=== PATIENT | female | born 1975 | race Caucasian/White ===

== ENCOUNTER 2017-11-05 05:09 | Emergency (ER) | payer SELFPAY ==
[2017-11-05] MEDS ORDERED: Lidocaine Viscous Sol 2% 15 ml UD Cup ONE (05:57)
[2017-11-05] MEDS ORDERED: Dexamethasone 4 MG TAB ONE (05:57)
--- NOTE | 2017-11-05 08:11 | RAD ---
2 VIEWS SOFT TISSUE NECK: Date: 11/05/17 INDICATION: Pharyngitis. COMPARISON: None. FINDINGS: There is straightening of the normal cervical lordosis. The prevertebral soft tissues are normal. Vis ualized epiglottic folds appear normal. The subglottic airway appears within normal limits. Lung apic es are clear. Mild disc degenerative disease is seen at C3-4. IMPRESSION: No acute abnormality. POS: [facility]
== END 2017-11-05 06:55 | disposition home or self-care (01) ==
LOC: ERS 05:09
DX: J02.9 Acute pharyngitis, unspecified (principal)
CPT/HCPCS: 70360; 87081; 87430; J8540

== ENCOUNTER 2017-11-05 15:23 | Emergency (ER) | payer SELFPAY | END 2017-11-05 16:17 | disposition home or self-care (01) | LOC: SCSER 15:23 | DX: J02.9 Acute pharyngitis, unspecified (principal) | CPT/HCPCS: 99283 ==

== ENCOUNTER 2018-04-03 21:15 | Day surgery (SDC) | payer SELFPAY ==
[~2018-04-03 21:15] MED LIST: ISOVUE-370 76%-LOCM 1 ML ONE
[2018-04-03 21:50] LABS: #Basophils 0.1 thou/uL (0.0-0.2); #Eosinphils 0.1 thou/uL (0.0-0.7); #Lymphocytes 2.5 thou/uL (1.20-3.40); #Monocytes 0.8 thou/uL (0.11-0.59); #Neutrophils 10.8 thou/uL (1.40-6.50); %Basophils 0.7 % (0.0-1.0); %Eosinophils 0.7 % (0.0-10.0); %Lymphocytes 17.4 % (21.0-51.0); %Monocytes 5.5 % (0.0-10.0); %Neutrophils 75.6 % (42.0-75.0); Hemoglobin 13.2 g/dL (12.0-16.0); Mean Corpuscular HGB CONC 35.7 g/dL (32.0-36.0); Mean Corpuscular Hemoglobin 29.8 pg (27.0-31.0); Mean Corpuscular Volume 83.5 fL (78.0-98.0); Mean Platelet Volume 7.7 fL (7.4-10.4); Platelet Count 343 thou/uL (130-400); RBC Distribution Width 12.5 % (11.5-14.5); Red Blood Cell (RBC) Count 4.44 mill/uL (4.20-5.40); White Blood Cell (WBC) Count 14.3 thou/uL (4.8-10.8)
[2018-04-03] MEDS ORDERED: Ondansetron HCl/PF 4 MG/2 ML Vial ONE (21:52)
[2018-04-03] MEDS ORDERED: Morphine 4 MG/ML VIAL ONE ×2 (21:52→22:48)
[2018-04-03 21:54] LABS: Bilirubin Negative (Negative); Blood, Urine Negative (Negative); Clarity CLEAR (Clear); Glucose, Urine (Dipstick) Negative (Negative); Leukocyte Negative (Negative); Nitrite Negative (Negative); Protein, Urine (Dipstick) Negative (Neg-Trace); Urobilinogen 0.2 mg/dL (0.2-1.0); pH, Urine 7.5 (5.0-9.0)
[2018-04-03 21:56] LABS: Specific Gravity, Urine 1.003 (1.002-1.036)
[2018-04-03 21:59] LABS: BHCG - Serum Negative (NEGATIVE); Pregs Control Background? CLEAR/WHITE (CLR/WHITE); Pregs Control Bar Appear? YES (CONTROL BAR)
[2018-04-03 22:11] LABS: ALT (SGPT) 13 U/L (8-55); AST (SGOT) 15 U/L (5-34); Albumin 4.4 g/dL (3.5-5.0); Alkaline Phosphatase 104 U/L (40-150); Anion Gap 15 mmol/L (10-20); BUN (Urea Nitrogen) 11 mg/dL (7.0-18.7); Bilirubin, Total 0.4 mg/dL (0.2-1.2); Calc. Creatinine Clearance 0 mL/min (70-130); Carbon Dioxide 21 mmol/L (22-29); Chloride 100 mmol/L (98-107); Estimated GFR-MDRD 70; Globulin 3.6 g/dL (2.4-3.5); Glucose 98 mg/dL (70-105); Lipase 18 U/L (8-78); Potassium 3.2 mmol/L (3.5-5.1); Sodium 133 mmol/L (136-145)
--- NOTE | 2018-04-03 22:43 | CT ---
CT ABDOMEN AND PELVIS WITH IV CONTRAST: 04/03/18 HISTORY: Right lower quadrant abdominal pain. COMPARISON: None available. FINDINGS: There is a small hiatal hernia. Lung bases are clear. The upper portion of the liver is excluded from view. The remainder of the liver has a normal CT appe arance. The spleen, pancreas, bilateral adrenal glands, kidneys, and urinary bladder demonstrate a normal CT appearance. The appendix is visualized and filled with gas and is normal in caliber. There is a rounded area of increased density with centrally located heterogeneity and decreased atten uation seen in the region of the cervix. This does not appear to represent the endocervical canal. Th e lesion within the cervix is a possibility. There is decreased attenuation in the endocervical canal with a 1.5 cm increased density focus within the area of low density. Could represent either a small fibroid or polyp. This is difficult to evaluate on this exam. Small amount of free fluid is seen in the right adnexal region. There are two closely adjacent subcen timeter hypodense cystic appearing structures in the right adnexa with irregular margins likely relat ed to involuting right ovarian cysts. There is colonic diverticulosis. No dilated loops of small bowel are seen. IMPRESSION: 1. Abnormal heterogeneous rounded mass-like structure within the region of the cervix with sugge stion of increased density mass-like structure in the endometrial canal. Further evaluation with pelv ic ultrasound is recommended. 2. Small amount of free fluid in the right adnexa. 3. No CT evidence of appendicitis. 4. Colonic diverticulosis. 5. Mild thickening of the solis of proximal loops of jejunum which is overall nonspecific. Enter itis is a possibility. 6. Small hiatal hernia. POS: [facility]
--- NOTE | 2018-04-04 00:07 | ULT ---
PELVIC ULTRASOUND: 04/03/18 HISTORY: Pelvic pain. COMPARISON: CT abdomen and pelvis on 04/03/18 obtained at 2152 hours. FINDINGS: Multiple endovaginal sonographic images of the pelvis are obtained. The uterus measures 9.6 cm x 5.9 cm x 6.2 cm. There are two hypoechoic structures seen within the modoc maddison, one seen centrally within the body of the uterus measuring 1.6 cm and second hypoechoic area luci suring 1.8 cm in the posterior body of the uterus likely related to uterine fibroids and probably acc ounts for abnormality seen within the central uterus on CT examination. There are also several Naboth hailee cysts present within the cervix which probably accounts for the abnormality in the cervix on CT e xam. The endometrium is not well delineated and is thin in appearance measuring less than 0.3 cm. The left ovary measures 2.6 x 2 x 1.3 cm. A few follicles are seen in the left ovary. There is an ech ogenic focus with central hypoechoic area seen within the left ovary which measures approximately 1 c m. The right ovary measures 3 cm x 2.9 cm x 3.1 cm. A few anechoic and hypoechoic structures are seen wi thin the right ovary measuring 2 cm or less which likely represent small follicles. Doppler evaluation of each ovary with spectral analysis and color flow evaluation does demonstrate ar terial and venous flow in each ovary. There is a slightly increased echogenic right adnexal mass which measures 5.4 cm x 2.1 cm x 1.6 cm. C olor flow evaluation demonstrates flow within this mass. This mass is in close proximity to the right ovary although there is suggestion of separation of this mass and the right ovary. There is small amount of free fluid in the cul-de-sac which does demonstrate increased echogenic mate rial suggesting complicated fluid and hemorrhage is a possibility. IMPRESSION: 1. Right adnexal mass which is in close proximity and probably abuts the right ovary. This may p otentially be ovarian in origin. Neoplastic process is a possibility. 2. Small anechoic and hypoechoic structures in each ovary likely related to follicles. 3. Uterine fibroids as well as multiple Nabothian cysts, and these findings likely correspond to the CT scan abnormalities within the uterus. 4. Small amount of complicated fluid within the cul-de-sac which could potentially represent sma ll amount of hemorrhage. 5. No fluid or fluid collection is seen in the endometrial canal. 6. Ectopic cannot be excluded based on this examination, but quantitative beta HCG lev el is reported as negative. 7. OB-RACKMAN consultation is suggested for further evaluation. POS: [facility]
[2018-04-04] MEDS ORDERED: Ondansetron HCl/PF 4 MG/2 ML Vial ONE ×2 (01:17→15:29)
[2018-04-04] MEDS ORDERED: Morphine 4 MG/ML VIAL ONE (01:17)
[2018-04-04] MEDS ORDERED: Bupivacaine/Epinephrine 0.25% 30 ML VIAL ONE (01:32)
[2018-04-04] MEDS ORDERED: Promethazine HCl 25 MG/ML VIAL ONE (01:34)
[2018-04-04] MEDS ORDERED: Fentanyl 100 MCG/2 ML VIAL ONE (01:34)
[2018-04-04] MEDS ORDERED: HYDROmorphone 2 MG/ML VIAL ONE (01:34)
[2018-04-04 01:44] LABS: Band 5 % (5-11); Hemoglobin 12.2 g/dL (12.0-16.0); Lymphocytes 30 % (21-51); MDiff Complete? YES; Mean Corpuscular HGB CONC 35.1 g/dL (32.0-36.0); Mean Corpuscular Hemoglobin 29.3 pg (27.0-31.0); Mean Corpuscular Volume 83.5 fL (78.0-98.0); Mean Platelet Volume 7.8 fL (7.4-10.4); Neutrophil 65 % (42-75); PLT Morphology Comment Appears Adequate; Platelet Count 309 thou/uL (130-400); RBC Distribution Width 12.5 % (11.5-14.5); Red Blood Cell (RBC) Count 4.17 mill/uL (4.20-5.40); White Blood Cell (WBC) Count 11.7 thou/uL (4.8-10.8)
[2018-04-04] MEDS ORDERED: Promethazine HCl 25 MG/ML VIAL SLOW IVP PRN (05:56)
[2018-04-04] MEDS ORDERED: Promethazine HCl 25 MG/ML VIAL IM PRN (05:56)
[2018-04-04] MEDS ORDERED: Ondansetron HCl/PF 4 MG/2 ML Vial IVP PRN (05:56)
[2018-04-04] MEDS ORDERED: HYDROmorphone 2 MG/ML VIAL SLOW IVP PRN (05:56)
--- NOTE | 2018-04-04 12:18 | OP ---
DATE OF PROCEDURE: 04/04/2018. PREOPERATIVE DIAGNOSES: 1. Acute onset of right-sided abdominal pain. 2. Adnexal mass. 3. Free fluid in the pelvis. POSTOPERATIVE DIAGNOSIS: Torsed right tube with hemoperitoneum. PROCEDURE PERFORMED: Diagnostic laparoscopy with partial right salpingectomy and evacuation of blood . ANESTHESIA: General. SURGEON: Dr. Stan Gutierrez. COUNTS: Correct. COMPLICATIONS: None. CONDITION: Stable to recovery room. SPECIMENS: Fimbrial portion of the right tube, i.e., the distal portion of the tube, status post a p rior tubal ligation. INDICATIONS FOR PROCEDURE: Ms. Ines Bella is a 42-year-old female who presented to the emergency room with acute onset abdominal pain that began approximately 24 hours before my evaluation. The pat ient was noted to have acute pain with free fluid in the pelvis and a right adnexal mass. Given the acuity of the situation and the presence of free fluid, decision was made to move forward with surger y for evaluation. Of note, the patient's hemoglobin and vital signs remained stable. DESCRIPTION OF PROCEDURE: After providing informed consent, the patient was taken to the operating r oom where she was placed under general anesthesia and placed in dorsal lithotomy position in [facility]. She was prepared and draped in the normal sterile fashion. Attention was placed vaginally w ith an operative speculum where the cervix was identified, grasped with a single tooth tenaculum. Ut erus sounded to approximately 11 cm and a uterine manipulator was then placed. Attention was then pl aced abdominally where a 5 mm skin incision was placed through the previous scar from tubal ligation surgery. Additional 5 mm incision was placed in the left quadrant and approximately 10-11 cm incisio n was placed to midline suprapubically. The Veress needle was then introduced into the abdominal cav ity and abdomen was insufflated to 15 mmHg. Entry pressure was 7 mmHg at a second attempt. The 5 mm port with trocar was then inserted through the umbilicus into the abdominal cavity confirmed by lapa roscope. The 11 mm port with trocar was then introduced suprapubically under direct visualization. Of note, the pelvis immediately was seeing blood in the cul-de-sac. The uterus was elevated and the right adnexa were then elevated from the ovarian fossa. Immediately visible was the right distal por tion of her tubal ligation. This fimbrial distal portion of the tube was extremely swollen, congeste d and dark maroon in color and clearly torsed. The third port and trocar was then introduced in the left incision and with the aid of laparoscopic graspers and the LigaSure device, the tube was then tr ansected from the mesosalpinx and removed through an Endo Catch bag in the suprapubic port. Given th e extent of the swelling, this was done with some difficulty. Once this was done, inspection was the n made of the surgical site and was found to be hemostatic. Both ovaries appeared to be normal. The posterior cul-de-sac was then irrigated and an attempt to remove as much blood as possible. Total a mount of about 100 mL of blood was noted in the cul-de-sac. With this completed, the ports were reina rosalba from the abdomen after deflation. The skin was closed with 4-0 Monocryl and the patient was take n to recovery room in stable condition. The single tooth tenaculum and uterine manipulator were also removed with tenaculum sites hemostatic.
[2018-04-04] MEDS ORDERED: Ketorolac Tromethamine 30 MG/ML VIAL ONE (15:29)
[2018-04-04] MEDS ORDERED: Dexamethasone 20 MG/5 ML VIAL ONE (15:29)
[2018-04-04] MEDS ORDERED: Glycopyrrolate 0.2 MG/ML 5 ML SYRINGE ONE (15:29)
[2018-04-04] MEDS ORDERED: ePHEDrine/0.9% NaCl/PF SYRINGE 50 mg/10 ml ONE (15:29)
[2018-04-04] MEDS ORDERED: Succinylcholine Chloride 20 MG/ML 10 ml SYRINGE FS ONE (15:29)
[2018-04-04] MEDS ORDERED: PROPOFOL 200 MG/20 ML VIAL ONE (15:29)
[2018-04-04] MEDS ORDERED: Lidocaine 1% PF 5 ML VIAL ONE (15:29)
[2018-04-05 00:02] LABS: Chlamydia by PCR Not Detected (NotDetected); GC by PCR Not Detected (NotDetected)
== END 2018-04-04 07:20 | disposition home or self-care (01) ==
LOC: ERS 21:15 → SDC/OP 04-04 04:10
PROVIDERS: ATTEND Obstetrics & Gynecology
PROC: 0UB54ZZ Excision of Right Fallopian Tube, Percutaneous Endoscopic Approach (ICD-10-PCS; principal; 2018-04-04)
DX: N83.6 Hematosalpinx (principal); N83.521 Torsion of right fallopian tube; K66.1 Hemoperitoneum; Z98.51 Tubal ligation status
CPT/HCPCS: 36415; 74177; 76856; 80053; 81003; 83690; 84702; 84703; 85025; 86850; 86900; 86901; 87480; 87491; 87510; 87591; 87660; 88305; 96361; 96374; 96375; 96376; J1100; J1170; J1885; J2001; J2270; J2405; J2550; J2704; J3010

== ENCOUNTER 2019-05-13 08:21 | Inpatient (IN) | payer SELFPAY ==
[2019-05-13 09:12] LABS: #Basophils 0.1 thou/uL (0.0-0.2); #Eosinphils 0.1 thou/uL (0.0-0.7); #Lymphocytes 1.5 thou/uL (1.20-3.40); #Neutrophils 13.6 thou/uL (1.40-6.50); %Basophils 0.4 % (0.0-1.0); %Eosinophils 0.6 % (0.0-10.0); %Lymphocytes 9.5 % (21.0-51.0); %Monocytes 5.9 % (0.0-10.0); %Neutrophils 83.7 % (42.0-75.0); Hemoglobin 12.2 g/dL (12.0-16.0); Mean Corpuscular HGB CONC 33.1 g/dL (32.0-36.0); Mean Corpuscular Hemoglobin 26.2 pg (27.0-31.0); Mean Corpuscular Volume 79.3 fL (78.0-98.0); Mean Platelet Volume 8.4 fL (7.4-10.4); Platelet Count 372 thou/uL (130-400); RBC Distribution Width 13.7 % (11.5-14.5); Red Blood Cell (RBC) Count 4.64 mill/uL (4.20-5.40); White Blood Cell (WBC) Count 16.2 thou/uL (4.8-10.8)
[2019-05-13 09:25] LABS: Bacteria/HPF None Seen HPF (None Seen); Bilirubin Negative (Negative); Blood, Urine 2+ (Negative); Clarity Clear (Clear); Glucose, Urine (Dipstick) Normal (Negative); Leukocyte Negative Leu/uL (Negative); Mucous/LPF 1+ LPF (<2+); Nitrite Negative (Negative); Protein, Urine (Dipstick) 30 mg/dL (Neg-Trace); Squamous Epithelial 0-3 HPF (0-3); Urobilinogen Normal mg/dL (Less than 2); WBC/HPF 0-3 HPF (0-3)
[2019-05-13] MEDS ORDERED: Morphine 4 MG/ML VIAL ONE (09:30)
[2019-05-13] MEDS ORDERED: Ondansetron PF 4 MG/2 ML Vial ONE (09:30)
[2019-05-13 09:35] LABS: ALT (SGPT) 12 U/L (8-55); AST (SGOT) 12 U/L (5-34); Alkaline Phosphatase 111 U/L (40-110); Anion Gap 11 mmol/L (10-20); BUN (Urea Nitrogen) 10 mg/dL (7.0-18.7); Bilirubin, Total 0.7 mg/dL (0.2-1.2); Calc. Creatinine Clearance 0 mL/min (70-130); Calcium 9.1 mg/dL (7.8-10.44); Carbon Dioxide 24 mmol/L (22-29); Chloride 103 mmol/L (98-107); Estimated GFR-MDRD 74; Globulin 3.6 g/dL (2.4-3.5); Glucose 89 mg/dL (70-105); Lipase 10 U/L (8-78); Potassium 3.8 mmol/L (3.5-5.1); Protein, Total 7.6 g/dL (6.0-8.3); Sodium 134 mmol/L (136-145)
--- NOTE | 2019-05-13 09:59 | CT ---
CT ABDOMEN AND PELVIS: Date: 05/13/19 COMPARISON: 04/03/18. HISTORY: Left lower quadrant pain. TECHNIQUE: Axial CT imaging at 5 mm intervals from lung bases through pubic symphysis with intravenous contrast. Coronal and sagittal reformatted imaging obtained. FINDINGS: The imaged lung bases are unremarkable. There is no free intraperitoneal air. The liver, gallbladder, spleen, pancreas, adrenal glands, and kidneys demonstrate no acute findings. There is a tiny hypodensity in the superior aspect of the right lobe of the liver on image 8, too sma ll to characterize. There is a small, sliding-type hiatal hernia. There is a focal area of prominent colonic wall thickening involving the sigmoid colon within the lef t lower quadrant with significant associated diverticular disease. Findings are most consistent with acute sigmoid diverticulitis. This involves a segment of the sigmoid colon measuring at least 8.0 cm in length. There is significant adjacent pericolonic fat stranding and there is small volume associat ed free fluid inferior to the inflamed sigmoid colon. There is no evidence for abscess. There is a li near area of gas best seen on sagittal image 131, coronal image 67, and axial image 69 posterior to t he inflamed sigmoid colon which could signify a focal area of microperforation. There is no evidence for bowel obstruction. The appendix appears grossly unremarkable. The vascular s tructures appear patent. No lymphadenopathy noted within the abdomen or pelvis. The osseous structure s demonstrate no worrisome lytic or blastic bone lesions. IMPRESSION: Focal area of sigmoid colonic wall thickening with prominent pericolonic fat stranding and associated diverticular disease consistent with acute sigmoid diverticulitis. There is a linear focus of gas ad jacent to the posterior wall of the inflamed sigmoid colon as described above, which may represent a focal area of microperforation. No free intraperitoneal air or evidence of abscess. CODE T. POS: [facility]
[2019-05-13] MEDS ORDERED: Piperacillin/Tazobactam 3.375 GM VIAL ONE (10:14)
[2019-05-13] MEDS ORDERED: Sodium Chloride 0.9% 1,000 ML IV SCH (11:52)
[2019-05-13] MEDS ORDERED: Ondansetron ODT 4 MG TAB SL PRN ×2 (11:52→12:25)
[2019-05-13] MEDS ORDERED: Ondansetron PF 4 MG/2 ML Vial IVP PRN ×2 (11:52→12:25)
[2019-05-13] MEDS ORDERED: Senokot S 8.6-50 MG TAB PO PRN (12:08)
[2019-05-13] MEDS ORDERED: Acetaminophen 325 MG TAB PO PRN (12:08)
[2019-05-13] MEDS ORDERED: Calcium Carbonate 500 MG ChewTAB PO PRN (12:08)
[2019-05-13] MEDS ORDERED: HYDROcodone/Acetaminophen 7.5/325 mg Tablet PO PRN (12:08)
[2019-05-13 12:11] VITALS: BMI 34.2
[2019-05-13] MEDS ORDERED: Labetalol HCl 100 MG/20 ML VIAL SLOW IVP PRN (12:23)
[2019-05-13] MEDS ORDERED: Docusate 100 MG CAP PO PRN (12:23)
[2019-05-13] MEDS ORDERED: diphenhydrAMINE 25 MG CAP PO PRN (12:23)
[2019-05-13] MEDS ORDERED: Benzonatate 100 MG CAP PO PRN (12:23)
[2019-05-13] MEDS ORDERED: ISOVUE-370 76%-LOCM 1 ML ONE (12:38)
[2019-05-13] MEDS: Sodium Chloride 0.9% 1,000 ML IV SCH (12:52)
[2019-05-13] MEDS: Morphine 4 MG/ML VIAL SLOW IVP PRN ×3 (12:53→21:52)
--- NOTE | 2019-05-13 13:30 | CON ---
DATE OF CONSULTATION: 05/13/2019 REQUESTING PHYSICIAN: Sharad Reyna MD HISTORY OF PRESENT ILLNESS: Ms. Jacques is a 44-year-old woman, who presented to emergency department today with worsening left lower quadrant abdominal pain. Pain started two days ago. The patient thought she was having gas pain. Pain failed to resolve with [id number]-[id number] remedies. The patient was seen by her primary care physician, who reassured her that this may be gas pain or gastroenteritis. Overnight, the patient was unable to sleep. Pain has intensified now to 10/10. As a result, she presented to emergency department. She reports two episodes of nausea and nonbilious emesis. She admits to some chills, but no fevers. She had a bowel movement this morning. She is currently anorexic. PAST MEDICAL HISTORY: She denies any previous medical problems. PAST SURGICAL HISTORY: Pertinent for x1, bilateral tubal ligation, and diagnostic laparoscopy. SOCIAL HISTORY: She is a G3, P2. She is employed as a massage therapist. She admits to occasional intake of ethanol in moderate amounts. She denies any cigarette smoking or illicit drug abuse. FAMILY HISTORY: Notable for heart disease in her mother, who is status post open heart surgery. Her father has type 2 diabetes mellitus. She denies any family history of essential hypertension or cancer. She denies any family history of any gastrointestinal disorders. CURRENT MEDICATIONS: None. ALLERGIES: THE PATIENT DENIES ANY KNOWN DRUG ALLERGIES. REVIEW OF SYSTEMS: Ten-point review of systems is essentially unremarkable except as stated in past medical history and chief complaint. PHYSICAL EXAMINATION: GENERAL: This reveals a 44-year-old normally developed woman, who is otherwise coherent, interactive, and appears stated age. The patient is alert and oriented x3. She appears to be in moderate acute distress secondary to abdominal pain. VITAL SIGNS: Include blood pressure 138/93, pulse 79, respiratory rate is 16, temperature 97.8 degrees Fahrenheit, and oxygen saturation 100% on room air. HEENT: Reveals normocephalic and atraumatic. Pupils are equal, round, and reactive to light and accommodation. HEART: Reveals regular rate and rhythm. No murmurs or gallops auscultated. LUNGS: Clear to auscultation bilaterally. Her breathing is regular and nonlabored. ABDOMEN: Soft and nondistended. She has left lower quadrant tenderness to palpation. There is moderate rebound tenderness present. Liver and spleen are otherwise nonpalpable below costal margin. EXTREMITIES: Reveal 2+ radial and pedal pulses bilaterally. No ankle edema is present. NEUROLOGIC: Reveals no focal deficits present. LABORATORY FINDINGS: Today include CBC with 16,200 white blood cells, hemoglobin and hematocrit are 12.2 and 36.8 respectively. Platelet count is 372,000. Metabolic profile; sodium 134, potassium is 3.8, chloride is 103, bicarb is 24, BUN is 10, creatinine is 0.84, glucose 89, total bilirubin is 0.7, AST and ALT are normal at 12 and 12 respectively. Serum lipase is also normal at 10. I have personally reviewed the CT scan of the abdomen and pelvis, which is obtained today. This shows diverticular disease involving the sigmoid colon with wall thickening and fat stranding involving the sigmoid mesocolon. There is a small amount of free fluid adjacent to the inflamed colon. IMPRESSION: Acute sigmoid colon diverticulitis. RECOMMENDATIONS: Broad-spectrum antibiotic therapy. There is no acute surgical indication for this patient at this time. The patient will be transitioned to oral antibiotics once abdominal pain resolves and she is able to tolerate oral intake. She ultimately would require outpatient antibiotic management for 2 weeks. She may eventually need colonoscopy and planned sigmoidectomy with primary anastomosis at that time. We will continue with bowel rest until the patient's abdominal pain has resolved. Above findings and recommendations have been discussed with the patient in the presence of her nurse. She indicates understanding of information given. I have answered her questions. Job ID: [id number]
[2019-05-13] MEDS: metroNIDAZOLE 500 MG in Premix Bag 1 BAG IVPB SCH ×2 (14:52→21:53)
[2019-05-13] MEDS ORDERED: Piperacillin/Tazobactam 3.375 GM in Sodium Chloride 0.9% 100 ML IVPB SCH (16:00)
--- NOTE | 2019-05-13 18:30 | PDOC.HHP ---
Hospitalist HPI - History of Present Illness Abdominal pain History of Present Illness: Very pleasant 44-year-old female with past medical history of tubal ligation presents with worsening abdominal pain. Patient has no past medical history and takes no medications chronically. Patient with several days of worsening abdominal pain and low-grade fevers. Patient presents to [facility] on 05/13/[address] scan of the abdomen, please see full report for details, there is acute sigmoid diverticulitis with possible microperforation. The patient was admitted to medical/surgical unit. Surgery consultation requested, please see full consultation and progress notes for details. Patient started on IV antibiotics, IV fluid resuscitation, and IV pain control. Hospitalist ROS - Review of Systems All other systems reviewed; all pertinent +/- noted in HPI/Subj - Medication Medications: Active Medications Generic Name Dose Route Start Last Admin Trade Name Freq PRN Reason Stop Dose Admin Metronidazole 500 mg/ Device 100 mls @ 100 mls/hr 05/13/19 14:00 05/13/19 14: 52 IVPB 100 mls Q8HR JEANA Administration Ciprofloxacin/Dextrose 400 mg/ 200 mls @ 200 mls/hr 05/13/19 13:00 05/13/19 12:52 Device IVPB 200 mls 0100,1300 JEANA Administration Sodium Chloride 1,000 mls @ 75 mls/hr 05/13/19 12:30 05/13/19 12:52 Normal Saline 0.9% IV 1,000 mls .[id number] JEANA Administration Morphine Sulfate 4 mg 05/13/19 12:24 05/13/19 17:40 Morphine SLOW IVP 4 mg Q4H PRN Administration Severe Pain (7-10) Hospitalist History - Past Medical History Source: patient Cardiac: reports: no pertinent history Pulmonary: reports: no pertinent history HIDE BUFFER: reports: no pertinent history Gastrointestinal: reports: no pertinent history Heme/Onc: reports: no pertinent history Hepatobiliary: reports: no pertinent history Psych: reports: no pertinent history Musculoskeletal: reports: no pertinent history Rheumatologic: reports: no pertinent history Infectious Disease: reports: no pertinent history ENT: reports: no pertinent history Renal/: reports: no pertinent history Endocrine: reports: no pertinent history Dermatology: reports: no pertinent history - Past Surgical History Past Surgical History: reports: Tubal Ligation - Family History Family History: reports: hypertension - Social History Smoking Status: Never smoker Alcohol: reports: Rare Drugs: reports: none Living Situation: With Family Domestic Violence: Negative Activity level: independent ambulation - Exam General Appearance: ill appearing Eye: PERRL, anicteric sclera ENT: normocephalic atraumatic, moist mucosa Neck: supple, symmetric, no lymphadenopathy Heart: RRR, no murmur, no gallops, no rubs Respiratory: CTAB, no wheezes, no rales, no ronchi Gastrointestinal: soft, non-distended, normal bowel sounds, no guarding, no rigidity, tender to palpation Extremities: no edema Skin: no lesions, no rashes Neurological: cranial nerve grossly intact, normal sensation to touch, no weakness, no focal deficits Musculoskeletal: no muscle wasting Psychiatric: normal affect, A&O x 3 Hospitalist Results - Labs Result Diagrams: 05/13/19 08:57 05/13/19 08:57 Lab results: WBC 16.2 thou/uL (4.8-10.8) H 05/13/19 08:57 Hgb 12.2 g/dL (12.0-16.0) 05/13/19 08:57 Hct 36.8 % (36.0-47.0) 05/13/19 08:57 MCV 79.3 fL (78.0-98.0) 05/13/19 08:57 Plt Count 372 thou/uL (130-400) 05/13/19 08:57 Neutrophils % 83.7 % (42.0-75.0) H 05/13/19 08:57 Sodium 134 mmol/L (136-145) L 05/13/19 08:57 Potassium 3.8 mmol/L (3.5-5.1) 05/13/19 08:57 Chloride 103 mmol/L (98-107) 05/13/19 08:57 Carbon Dioxide 24 mmol/L (22-29) 05/13/19 08:57 BUN 10 mg/dL (7.0-18.7) 05/13/19 08:57 Creatinine 0.84 mg/dL (0.6-1.1) 05/13/19 08:57 Glucose 89 mg/dL (70-105) 05/13/19 08:57 Calcium 9.1 mg/dL (7.8-10.44) 05/13/19 08:57 Total Bilirubin 0.7 mg/dL (0.2-1.2) 05/13/19 08:57 AST 12 U/L (5-34) 05/13/19 08:57 ALT 12 U/L (8-55) 05/13/19 08:57 Alkaline Phosphatase 111 U/L (40-110) H 05/13/19 08:57 Serum Total Protein 7.6 g/dL (6.0-8.3) 05/13/19 08:57 Albumin 4.0 g/dL (3.5-5.0) 05/13/19 08:57 Lipase 10 U/L (8-78) 05/13/19 08:57 Urine Ketones Trace mg/dL (Negative) A 05/13/19 08:48 Urine Blood 2+ (Negative) A 05/13/19 08:48 Urine Nitrite Negative (Negative) 05/13/19 08:48 Ur Leukocyte Esterase Negative Bong/uL (Negative) 05/13/19 08:48 Urine RBC 7-10 HPF (0-3) A 05/13/19 08:48 Urine WBC 0-3 HPF (0-3) 05/13/19 08:48 Ur Squamous Epith Cells 0-3 HPF (0-3) 05/13/19 08:48 Urine Bacteria None Seen HPF (None Seen) 05/13/19 08:48 - Radiology Interpretation CT scan - abdomen Status: image reviewed by mn Hospitalist H&P A/P - Problem (1) Sigmoid diverticulitis Code(s): K57.32 - DVTRCLI OF LG INT W/O PERFORATION OR ABSCESS W/O BLEEDING Status: Acute (2) Abdominal pain Code(s): R10.9 - UNSPECIFIED ABDOMINAL PAIN Status: Acute (3) Sepsis Code(s): A41.9 - SEPSIS, UNSPECIFIED ORGANISM Status: Acute (4) Leukocytosis Code(s): D72.829 - ELEVATED WHITE BLOOD CELL COUNT, UNSPECIFIED Status: Acute - Plan Plan: Plan: admit to medical unit/surgical unit general surgery consultation, recommendations appreciated IV antibiotics IV fluid resuscitation pain control symptomatic control of nausea and vomiting as needed replace electrolytes as needed patient is on no chronic medications patient will be transitioned to oral antibiotics when pain is controlled and tolerating diet
--- NOTE | 2019-05-14 01:29 | PRG ---
DATE OF SERVICE: 05/14/2019 SUBJECTIVE: The patient is currently on the medicine floor. She has been admitted for acute sigmoid colon diverticulitis. The patient is currently undergoing bowel rest, has IV pain medication and IV antibiotics . The patient remains n.p.o. She states that her pain has improved, but she does have times where it flares again if she moves in certain direction. Otherwise, she denies nausea or vomiting. She has also stated she only has very little flatus. PHYSICAL EXAMINATION: VITAL SIGNS: Stable. The patient is afebrile. GENERAL: The patient is resting comfortably in bed. She is awake, alert, and oriented x3. ABDOMEN: Soft, flat with minimal tenderness to the left lower quadrant. She states this has improved from the previous exam today. ASSESSMENT: Acute sigmoid colon diverticulitis. PLAN: Plan will be to continue bowel rest, remain n.p.o., IV antibiotics that will be transitioned to oral as her bowel function returns, and the remainder of plan per Dr. Moulton today. Job ID: [id number]
[2019-05-14] MEDS: Sodium Chloride 0.9% 1,000 ML IV SCH ×2 (02:26→08:38)
[2019-05-14 04:47] LABS: #Basophils 0.1 thou/uL (0.0-0.2); #Eosinphils 0.2 thou/uL (0.0-0.7); #Lymphocytes 1.6 thou/uL (1.20-3.40); #Monocytes 0.7 thou/uL (0.11-0.59); #Neutrophils 7.3 thou/uL (1.40-6.50); %Basophils 0.6 % (0.0-1.0); %Eosinophils 2.5 % (0.0-10.0); %Lymphocytes 16.4 % (21.0-51.0); %Neutrophils 73.6 % (42.0-75.0); Hemoglobin 10.3 g/dL (12.0-16.0); Mean Corpuscular HGB CONC 32.7 g/dL (32.0-36.0); Mean Corpuscular Hemoglobin 26.9 pg (27.0-31.0); Mean Corpuscular Volume 82.4 fL (78.0-98.0); Mean Platelet Volume 8.3 fL (7.4-10.4); Platelet Count 321 thou/uL (130-400); RBC Distribution Width 13.8 % (11.5-14.5); Red Blood Cell (RBC) Count 3.82 mill/uL (4.20-5.40)
[2019-05-14 04:58] LABS: Anion Gap 9 mmol/L (10-20); BUN (Urea Nitrogen) 9 mg/dL (7.0-18.7); Calc. Creatinine Clearance 135 mL/min (70-130); Calcium 8.5 mg/dL (7.8-10.44); Carbon Dioxide 25 mmol/L (22-29); Chloride 105 mmol/L (98-107); Estimated GFR-MDRD 83; Glucose 94 mg/dL (70-105); Potassium 3.9 mmol/L (3.5-5.1); Sodium 135 mmol/L (136-145)
[2019-05-14] MEDS: metroNIDAZOLE 500 MG in Premix Bag 1 BAG IVPB SCH ×3 (06:08→21:45)
[2019-05-14] MEDS: HYDROcodone/Acetaminophen 5/325 mg Tablet PO PRN ×2 (06:14→17:13)
[2019-05-14] MEDS ORDERED: Pantoprazole 40 MG VIAL IVP SCH ×2 (10:45→11:00)
--- NOTE | 2019-05-14 14:49 | PDOC.HOSPP ---
- Subjective Subjective: Seen and examined. Still with abdominal pain. No fevers. Overall patient states that she is feeling better. Patient has passed flatus, though no bowel movement. Patient has had no oral intake for the past 2+ days. - Objective Vital Signs & Weight: Vital Signs (12 hours) Temp Pulse Resp BP Pulse Ox 05/14/19 11:18 98.1 F 66 20 144/87 H 98 05/14/19 07:23 97.7 F 66 18 118/78 97 05/14/19 04:00 98.0 F 64 16 97/64 96 Weight Weight 199 lb 8 oz I&O: 05/13/19 05/14/19 05/15/19 06:59 06:59 06:59 Intake Total 477 Balance 477 Result Diagrams: 05/14/19 04:22 05/14/19 04:22 Hospitalist ROS - Review of Systems All other systems reviewed; all pertinent +/- noted in HPI/Subj - Medication Medications: Active Medications Generic Name Dose Route Start Last Admin Trade Name Freq PRN Reason Stop Dose Admin Hydrocodone Bitart/Acetaminophen 1 tab 05/13/19 12:08 05/14/19 06:14 Beckley 5/325 PO 1 tab Q4H PRN Administration Moderate Pain (4-6) Metronidazole 500 mg/ Device 100 mls @ 100 mls/hr 05/13/19 14:00 05/14/19 11: 23 IVPB 100 mls Q8HR JEANA Administration Ciprofloxacin/Dextrose 400 mg/ 200 mls @ 200 mls/hr 05/13/19 13:00 05/14/19 11:23 Device IVPB 200 mls 0100,1300 JEANA Administration Sodium Chloride 1,000 mls @ 75 mls/hr 05/13/19 12:30 05/14/19 08:38 Normal Saline 0.9% IV 1,000 mls .[id number] JEANA Administration Morphine Sulfate 4 mg 05/13/19 12:24 05/13/19 21:52 Morphine SLOW IVP 4 mg Q4H PRN Administration Severe Pain (7-10) - Exam General Appearance: NAD, awake alert Eye: PERRL, anicteric sclera ENT: normocephalic atraumatic, moist mucosa Neck: supple, symmetric, no lymphadenopathy Heart: RRR, no murmur, no gallops, no rubs Respiratory: CTAB, no wheezes, no rales Gastrointestinal: soft, non-distended, normal bowel sounds, no palpable masses, no guarding, no rigidity, tender to palpation Extremities: no edema Skin: no lesions, no rashes Neurological: cranial nerve grossly intact, normal sensation to touch, no weakness Musculoskeletal: normal strength Psychiatric: normal affect, A&O x 3 Hosp A/P (1) Sigmoid diverticulitis Code(s): K57.32 - DVTRCLI OF LG INT W/O PERFORATION OR ABSCESS W/O BLEEDING Status: Acute (2) Abdominal pain Code(s): R10.9 - UNSPECIFIED ABDOMINAL PAIN Status: Acute (3) Sepsis Code(s): A41.9 - SEPSIS, UNSPECIFIED ORGANISM Status: Acute (4) Leukocytosis Code(s): D72.829 - ELEVATED WHITE BLOOD CELL COUNT, UNSPECIFIED Status: Acute - Plan Plan: medical/surgical unit general surgery consultation, recommendations appreciated Advanced to clear liquids diet IV antibiotics IV fluid resuscitation pain control symptomatic control of nausea and vomiting as needed replace electrolytes as needed patient is on no chronic medications.
--- NOTE | 2019-05-14 14:51 | PDOC.GSPN ---
Surgery Progress Note: Subj - Subjective Narrative: Ms. Jacques is A 44 yo female with a complicated diverticulitis exacerbation. She is HD #2. Patient admits pain is improving. She has been ambulating in the hallway with no difficulties. She denied any fever, chills, N/V, diarrhea, melena, hematochezia. Surgery Progress Note: Obj - Vital signs Vital signs: Vital Signs - Most Recent Temp Pulse Resp BP Pulse Ox 98.1 F 66 20 144/87 H 98 05/14/19 11:18 05/14/19 11:18 05/14/19 11:18 05/14/19 11:18 05/14/19 11:18 - Physical Exam General: no distress, well developed, well nourished Cardiovascular: regular rate and rhythm Respiratory: clear to auscultation, normal expansion, normal respiratory effort , breath sounds present Abdomen: soft, nondistended, decreased bowel sounds, guarding, tender (tender to light palpation in the left side of the abdomen, worse in the left lower quadrant. She has mild rebound.) Integumentary: no abnormal pigmentation, no rash Musculoskeletal: normal gait, normal posture Psychiatric: memory intact, oriented to time, oriented to person, oriented to place, speech is normal Surgery Progress Note: Results - Labs Result Diagrams: 05/14/19 04:22 05/14/19 04:22 Lab results: Laboratory Results - last 24 hr 05/14/19 05/14/19 04:22 04:22 WBC 10.0 RBC 3.82 L Hgb 10.3 L Hct 31.4 L MCV 82.4 MCH 26.9 L MCHC 32.7 RDW 13.8 Plt Count 321 MPV 8.3 Neutrophils % 73.6 Lymphocytes % 16.4 L Monocytes % 7.0 Eosinophils % 2.5 Basophils % 0.6 Neutrophils # 7.3 H Lymphocytes # 1.6 Monocytes # 0.7 H Eosinophils # 0.2 Basophils # 0.1 Sodium 135 L Potassium 3.9 Chloride 105 Carbon Dioxide 25 Anion Gap 9 L BUN 9 Creatinine 0.76 Estimated GFR (MDRD) 83 Glucose 94 Calcium 8.5 - Radiology Interpretation CT scan - abdomen Status: image reviewed by me, report reviewed by me Surgery Progress Note: A/P - Problem (1) Sigmoid diverticulitis Current Visit: Yes Code(s): K57.32 - DVTRCLI OF LG INT W/O PERFORATION OR ABSCESS W/O BLEEDING Status: Acute Assessment and Plan: Patient is HD#2, recovering well from her complicated diverticulitis exacerbation. She has not had any bouts of N/V and denied having fever, chills. WBC has gone down from 16-10. She has no major complaints other than abdominal tenderness, and mild pain with ambulation. 1. Advance diet to clear liquids 2. Continue ambulation 3. Continue PPI prophylaxis 4. F/u WBC in morning labs 5. Continue ciprofloxacin and flagyl 6. Discharge anticipated tomorrow if she is able to tolerate po.
[2019-05-15] MEDS: HYDROcodone/Acetaminophen 5/325 mg Tablet PO PRN ×2 (00:55→08:40)
[2019-05-15 04:03] LABS: #Basophils 0.1 thou/uL (0.0-0.2); #Eosinphils 0.3 thou/uL (0.0-0.7); #Lymphocytes 1.1 thou/uL (1.20-3.40); #Monocytes 0.5 thou/uL (0.11-0.59); #Neutrophils 4.5 thou/uL (1.40-6.50); %Basophils 0.8 % (0.0-1.0); %Eosinophils 4.2 % (0.0-10.0); %Monocytes 7.7 % (0.0-10.0); %Neutrophils 70.4 % (42.0-75.0); Hemoglobin 11.3 g/dL (12.0-16.0); Mean Corpuscular HGB CONC 33.3 g/dL (32.0-36.0); Mean Corpuscular Volume 81.1 fL (78.0-98.0); Mean Platelet Volume 8.3 fL (7.4-10.4); Platelet Count 370 thou/uL (130-400); RBC Distribution Width 13.8 % (11.5-14.5); Red Blood Cell (RBC) Count 4.19 mill/uL (4.20-5.40); White Blood Cell (WBC) Count 6.4 thou/uL (4.8-10.8)
[2019-05-15 04:28] LABS: Anion Gap 11 mmol/L (10-20); BUN (Urea Nitrogen) 7 mg/dL (7.0-18.7); Calc. Creatinine Clearance 140 mL/min (70-130); Calcium 8.6 mg/dL (7.8-10.44); Carbon Dioxide 22 mmol/L (22-29); Chloride 106 mmol/L (98-107); Estimated GFR-MDRD 87; Glucose 94 mg/dL (70-105); Potassium 3.6 mmol/L (3.5-5.1); Sodium 135 mmol/L (136-145)
[2019-05-15] MEDS: Morphine 4 MG/ML VIAL SLOW IVP PRN (05:02)
[2019-05-15] MEDS: metroNIDAZOLE 500 MG in Premix Bag 1 BAG IVPB SCH ×3 (05:02→23:07)
[2019-05-15] MEDS: Sodium Chloride 0.9% 1,000 ML IV SCH (05:08)
[2019-05-15] MEDS: Enoxaparin Sodium 40 MG/0.4 ML SYRINGE SC SCH (08:34)
[2019-05-15] MEDS ORDERED: Pantoprazole 40 MG VIAL IVP SCH (09:00)
[2019-05-15 09:43] LABS: Iron Binding Capacity, Total 319 mcg/dL (265-497)
[2019-05-15 09:44] LABS: Iron 28 ug/dL (50-170)
[2019-05-15] MEDS ORDERED: traMADol HCl 50 MG TAB PO PRN (10:01)
[2019-05-15] MEDS ORDERED: Ibuprofen 800 MG TAB PO PRN (10:02)
[2019-05-15 10:08] LABS: Ferritin 84.11 ng/mL (10-291)
[2019-05-15] MEDS: Acetaminophen 325 MG TAB PO SCH ×4 (11:18→20:18)
--- NOTE | 2019-05-15 12:14 | PDOC.HOSPP ---
- Subjective Subjective: Seen and examined. Patient with severe sharp stabbing pains in the abdomen still , passing flatus though no bowel movement. Tolerating liquid diet. Patient with anemia, running iron studies to determine if she is iron deficiency anemia from Mencies. Patient states that she just finished her menstrual cycle and she has been spotting still. - Objective Vital Signs & Weight: Vital Signs (12 hours) Temp Pulse Resp BP Pulse Ox 05/15/19 08:00 99 05/15/19 05:18 98.0 F 73 18 157/97 H 97 Weight Weight 199 lb 8 oz I&O: 05/14/19 05/15/19 05/16/19 06:59 06:59 06:59 Intake Total 477 3800 Balance 477 3800 Result Diagrams: 05/15/19 03:33 05/15/19 03:33 Hospitalist ROS - Review of Systems All other systems reviewed; all pertinent +/- noted in HPI/Subj - Medication Medications: Active Medications Generic Name Dose Route Start Last Admin Trade Name Freq PRN Reason Stop Dose Admin Acetaminophen 650 mg 05/15/19 10:00 05/15/19 11:18 Tylenol PO 650 mg Q4H JEANA Administration Enoxaparin Sodium 40 mg 05/15/19 09:00 05/15/19 08:34 Lovenox SC 40 mg 0900 JEANA Administration Metronidazole 500 mg/ Device 100 mls @ 100 mls/hr 05/13/19 14:00 05/15/19 05: 02 IVPB 100 mls Q8HR JEANA Administration Ciprofloxacin/Dextrose 400 mg/ 200 mls @ 200 mls/hr 05/13/19 13:00 05/15/19 00:49 Device IVPB 200 mls 0100,1300 JEANA Administration Morphine Sulfate 4 mg 05/13/19 12:24 05/15/19 05:02 Morphine SLOW IVP 4 mg Q4H PRN Administration Severe Pain (7-10) Pantoprazole Sodium 40 mg 05/15/19 09:00 05/15/19 08:34 Protonix IVP 40 mg DAILY JEANA Administration - Exam General Appearance: NAD, awake alert Eye: PERRL ENT: normocephalic atraumatic, moist mucosa Neck: supple, symmetric, no lymphadenopathy Heart: RRR, no murmur, no gallops, no rubs Respiratory: CTAB, no wheezes, no rales, no ronchi Gastrointestinal: soft, non-tender, non-distended, normal bowel sounds, no rigidity, tender to palpation (Left lower quadrant), voluntary guarding Extremities: no edema Skin: no lesions, no rashes Neurological: cranial nerve grossly intact Musculoskeletal: normal tone, no muscle wasting Psychiatric: normal affect, A&O x 3 Hosp A/P (1) Sigmoid diverticulitis Code(s): K57.32 - DVTRCLI OF LG INT W/O PERFORATION OR ABSCESS W/O BLEEDING Status: Acute (2) Abdominal pain Code(s): R10.9 - UNSPECIFIED ABDOMINAL PAIN Status: Acute (3) Sepsis Code(s): A41.9 - SEPSIS, UNSPECIFIED ORGANISM Status: Acute (4) Leukocytosis Code(s): D72.829 - ELEVATED WHITE BLOOD CELL COUNT, UNSPECIFIED Status: Acute - Plan Plan: medical/surgical unit general surgery consultation, recommendations appreciated Advanced to clear liquids diet IV antibiotics IV fluid resuscitation pain control, still with severe sharp stabbing pains - Left lower quadrant symptomatic control of nausea and vomiting as needed replace electrolytes as needed patient is on no chronic medications.
[2019-05-15] MEDS: traMADol HCl 50 MG TAB PO SCH ×4 (12:59→23:07)
--- NOTE | 2019-05-15 14:55 | PDOC.GSPN ---
Surgery Progress Note: Subj - Subjective Narrative: Ms. Jacques is HD#3 due to a severe diverticulitis exacerbation. She complained about severe LLQ pain overnight that had resolved with morphine by the time I saw her during morning rounds. She has not had a BM yet, but had flatus yesterday. Patient has been ambulating with no difficulties, and is tolerating po. She denied any fever, chills, N/V, CP, SOB. Surgery Progress Note: Obj - Vital signs Vital signs: Vital Signs - Most Recent Temp Pulse Resp BP Pulse Ox 98.0 F 73 18 157/97 H 99 05/15/19 05:18 05/15/19 05:18 05/15/19 05:18 05/15/19 05:18 05/15/19 08:00 - Physical Exam General: no distress, well developed, well nourished Cardiovascular: regular rate and rhythm Respiratory: clear to auscultation, normal expansion, normal respiratory effort , breath sounds present Abdomen: soft, nondistended, positive bowel sounds, appropriately tender ( tender to palpation in the left quadrants. No rebound, guarding or rigidity noted.) Psychiatric: memory intact, oriented to time, oriented to person, oriented to place, speech is normal Surgery Progress Note: Results - Labs Result Diagrams: 05/15/19 03:33 05/15/19 03:33 Lab results: Laboratory Results - last 24 hr 05/15/19 05/15/19 05/15/19 03:33 03:33 09:12 WBC 6.4 RBC 4.19 L Hgb 11.3 L Hct 34.0 L MCV 81.1 MCH 27.0 MCHC 33.3 RDW 13.8 Plt Count 370 MPV 8.3 Neutrophils % 70.4 Lymphocytes % 17.0 L Monocytes % 7.7 Eosinophils % 4.2 Basophils % 0.8 Neutrophils # 4.5 Lymphocytes # 1.1 L Monocytes # 0.5 Eosinophils # 0.3 Basophils # 0.1 Sodium 135 L Potassium 3.6 Chloride 106 Carbon Dioxide 22 Anion Gap 11 BUN 7 Creatinine 0.73 Estimated GFR (MDRD) 87 Glucose 94 Calcium 8.6 Iron 28 L TIBC 319 % Saturation 9 L Ferritin Vitamin B12 Folate 05/15/19 05/15/19 09:12 09:12 WBC RBC Hgb Hct MCV MCH MCHC RDW Plt Count MPV Neutrophils % Lymphocytes % Monocytes % Eosinophils % Basophils % Neutrophils # Lymphocytes # Monocytes # Eosinophils # Basophils # Sodium Potassium Chloride Carbon Dioxide Anion Gap BUN Creatinine Estimated GFR (MDRD) Glucose Calcium Iron TIBC % Saturation Ferritin 84.11 Vitamin B12 309 Folate 9.50 Surgery Progress Note: A/P - Problem (1) Sigmoid diverticulitis Current Visit: Yes Code(s): K57.32 - DVTRCLI OF LG INT W/O PERFORATION OR ABSCESS W/O BLEEDING Status: Acute Assessment and Plan: Patient is HD #3 due to a diverticulitis exacerbation. She continues to improve every day. Patient complained about a bout of severe pain early in the morning that resolved with morphine. She is able to ambulate without difficulties, and is tolerating po with no N/V. WBC is 6 from 10 yesterday. I personally examined patient at bedside with . 1. Advance diet to full liquids 2. Change her pain management to po only, with scheduled tramadol and Tylenol 3. Stop IV fluids. 4. Continue ambulating at least 4 times per day 5. Add Miralax to bowel regimen. 6. Patient should be able to go home as soon as she has a bowel movement. Possibly tomorrow.
[2019-05-15] MEDS: Senokot S 8.6-50 MG TAB PO SCH (20:17)
--- NOTE | 2019-05-16 01:26 | PRG ---
DATE OF SERVICE: 05/16/2019 SUBJECTIVE: The patient is currently on the medicine floor. She was admitted for acute sigmoid colon diverticulitis. She has been on IV antibiotics since her date of admission on 05/13/2019. She is currently on a liquid diet. She did reportedly have some pain today, but otherwise is doing well. Once she is able to tolerate a diet, she will be switched to p.o. antibiotics. PHYSICAL EXAMINATION: VITAL SIGNS: Stable. The patient remains afebrile. GENERAL: The patient is resting comfortably in bed. She was asleep at the time of my visit. She did awaken slightly to verbal stimuli and states that she has no complaints at this time. ASSESSMENT: Acute sigmoid colon diverticulitis. PLAN: Will be to continue clear liquid diet. We will re-evaluate her in the morning and hopefully be able to advance her diet. Once she is tolerating orals, we will switch her to oral antibiotics. Job ID: [id number]
[2019-05-16] MEDS: Acetaminophen 325 MG TAB PO SCH ×6 (01:28→22:55)
[2019-05-16 05:00] LABS: #Basophils 0.1 thou/uL (0.0-0.2); #Eosinphils 0.2 thou/uL (0.0-0.7); #Lymphocytes 0.8 thou/uL (1.20-3.40); #Monocytes 0.4 thou/uL (0.11-0.59); #Neutrophils 3.6 thou/uL (1.40-6.50); %Basophils 1.3 % (0.0-1.0); %Eosinophils 4.1 % (0.0-10.0); %Lymphocytes 16.6 % (21.0-51.0); %Monocytes 6.9 % (0.0-10.0); Hemoglobin 10.6 g/dL (12.0-16.0); Mean Corpuscular HGB CONC 32.8 g/dL (32.0-36.0); Mean Corpuscular Hemoglobin 26.6 pg (27.0-31.0); Mean Corpuscular Volume 81.1 fL (78.0-98.0); Mean Platelet Volume 8.6 fL (7.4-10.4); Platelet Count 368 thou/uL (130-400); RBC Distribution Width 13.9 % (11.5-14.5); Red Blood Cell (RBC) Count 3.98 mill/uL (4.20-5.40); White Blood Cell (WBC) Count 5.1 thou/uL (4.8-10.8)
[2019-05-16 05:21] LABS: Anion Gap 10 mmol/L (10-20); BUN (Urea Nitrogen) 6 mg/dL (7.0-18.7); Calc. Creatinine Clearance 144 mL/min (70-130); Calcium 8.7 mg/dL (7.8-10.44); Carbon Dioxide 23 mmol/L (22-29); Chloride 105 mmol/L (98-107); Estimated GFR-MDRD 89; Glucose 87 mg/dL (70-105); Potassium 3.7 mmol/L (3.5-5.1); Sodium 134 mmol/L (136-145)
[2019-05-16] MEDS: traMADol HCl 50 MG TAB PO SCH ×4 (05:28→22:55)
[2019-05-16] MEDS: metroNIDAZOLE 500 MG in Premix Bag 1 BAG IVPB SCH (05:28)
[2019-05-16] MEDS: metroNIDAZOLE 500 MG TAB PO SCH ×3 (08:19→19:53)
[2019-05-16] MEDS: Ciprofloxacin 500 MG TAB PO SCH ×2 (08:19→19:53)
[2019-05-16] MEDS: Enoxaparin Sodium 40 MG/0.4 ML SYRINGE SC SCH (08:19)
[2019-05-16] MEDS: Senokot S 8.6-50 MG TAB PO SCH ×2 (08:19→19:53)
[2019-05-16] MEDS: Polyethylene Glycol 3350 17 GM Packet PO SCH (08:20)
--- NOTE | 2019-05-16 08:58 | PDOC.HOSPP ---
- Subjective Encounter Date: 05/16/19 Encounter Time: 08:57 Subjective: abd pain much improved, passing stool - Objective Vital Signs & Weight: Weight Weight 199 lb 8 oz I&O: 05/15/19 05/16/19 05/17/19 06:59 06:59 06:59 Intake Total 3800 1020 Balance 3800 1020 Result Diagrams: 05/16/19 04:03 05/16/19 04:03 Hospitalist ROS - Medication Medications: Active Medications Generic Name Dose Route Start Last Admin Trade Name Freq PRN Reason Stop Dose Admin Acetaminophen 650 mg 05/15/19 10:00 05/16/19 08:19 Tylenol PO 650 mg Q4H JEANA Administration Ciprofloxacin 500 mg 05/16/19 09:00 05/16/19 08:19 Cipro PO 500 mg BID JEANA Administration Enoxaparin Sodium 40 mg 05/15/19 09:00 05/16/19 08:19 Lovenox SC 40 mg 0900 JEANA Administration Metronidazole 500 mg 05/16/19 09:00 05/16/19 08:19 Flagyl PO 500 mg TID JEANA Administration Ondansetron HCl 8 mg 05/13/19 12:25 05/16/19 08:24 Zofran Odt SL 8 mg BID PRN Administration Nausea/Vomiting Polyethylene Glycol 17 gm 05/16/19 09:00 05/16/19 08:20 Miralax PO 17 gm DAILY JEANA Administration Senna/Docusate Sodium 1 tab 05/15/19 21:00 05/16/19 08:19 Senokot S PO 1 tab BID JEANA Administration Tramadol HCl 50 mg 05/15/19 12:00 05/16/19 05:28 Ultram PO 50 mg Q6HR JEANA Administration - Exam General Appearance: awake alert Neck: no JVD Heart: RRR, no murmur Respiratory: CTAB Gastrointestinal: soft, non-tender, non-distended, normal bowel sounds Extremities: no edema Hosp A/P (1) Iron deficiency anemia due to chronic blood loss Code(s): D50.0 - IRON DEFICIENCY ANEMIA SECONDARY TO BLOOD LOSS (CHRONIC) Status: Acute (2) Abdominal pain Code(s): R10.9 - UNSPECIFIED ABDOMINAL PAIN Status: Acute Qualifiers: Abdominal location: generalized Qualified Code(s): R10.84 - Generalized abdominal pain (3) Sepsis Code(s): A41.9 - SEPSIS, UNSPECIFIED ORGANISM Status: Acute Qualifiers: Sepsis type: sepsis due to unspecified organism Sepsis acute organ dysfunction status: without acute organ dysfunction Qualified Code(s): A41.9 - Sepsis, unspecified organism (4) Sigmoid diverticulitis Code(s): K57.32 - DVTRCLI OF LG INT W/O PERFORATION OR ABSCESS W/O BLEEDING Status: Acute - Plan start regular diet po antibx anticipate DC in am
--- NOTE | 2019-05-16 11:32 | PDOC.GSPN ---
Surgery Progress Note: Subj - Subjective Narrative: Ms Jacques is HD#3 s/p a complicated diverticulitis exacerbation. She continues to improve, tolerating full liquids with no N/V. She complained of 1 clear emesis episode that looked like phlegm. Her pain is almost resolved, except for isolated events of pain last night in her lower abdomen. She has been ambulating with no difficulties. She had a bowel movement yesterday and this morning. Patient denied fever, chills, SOB, CP, melena, hematochezia, diarrhea. Surgery Progress Note: Obj - Vital signs Vital signs: Vital Signs - Most Recent Temp Pulse Resp BP Pulse Ox 96.8 F L 68 14 123/84 98 05/16/19 10:34 05/16/19 10:34 05/16/19 10:34 05/16/19 10:34 05/16/19 10:36 - Physical Exam General: no distress, well developed, well nourished Cardiovascular: regular rate and rhythm Respiratory: clear to auscultation, normal expansion, normal respiratory effort , breath sounds present Abdomen: soft, non tender, nondistended, positive bowel sounds Musculoskeletal: normal gait, normal posture Psychiatric: memory intact, oriented to time, oriented to person, oriented to place, speech is normal Surgery Progress Note: Results - Labs Result Diagrams: 05/16/19 04:03 05/16/19 04:03 Lab results: Laboratory Results - last 24 hr 05/16/19 05/16/19 04:03 04:03 WBC 5.1 RBC 3.98 L Hgb 10.6 L Hct 32.3 L MCV 81.1 MCH 26.6 L MCHC 32.8 RDW 13.9 Plt Count 368 MPV 8.6 Neutrophils % 71.0 Lymphocytes % 16.6 L Monocytes % 6.9 Eosinophils % 4.1 Basophils % 1.3 H Neutrophils # 3.6 Lymphocytes # 0.8 L Monocytes # 0.4 Eosinophils # 0.2 Basophils # 0.1 Sodium 134 L Potassium 3.7 Chloride 105 Carbon Dioxide 23 Anion Gap 10 BUN 6 L Creatinine 0.71 Estimated GFR (MDRD) 89 Glucose 87 Calcium 8.7 Surgery Progress Note: A/P - Problem (1) Sigmoid diverticulitis Current Visit: Yes Code(s): K57.32 - DVTRCLI OF LG INT W/O PERFORATION OR ABSCESS W/O BLEEDING Status: Acute Assessment and Plan: Ms. Hallman is HD#3. She continues to improve as expected. Her pain is almost resolved and tolerating po, ambulating without any difficulties, and having bowel movements. Patient's labs and vitals are within normal limits. She is currently in a full liquid diet. I anticipate she can go home tomorrow. 1. Advance diet to regular diet 2. Switch IV ciprofloxain and flagyl to po. 3. Continue ambulation. 4. Pain meds PRN. 5. Add Miralax.
[2019-05-17] MEDS: Acetaminophen 325 MG TAB PO SCH ×3 (02:56→07:52)
[2019-05-17] MEDS: traMADol HCl 50 MG TAB PO SCH ×2 (05:15→11:02)
[2019-05-17 05:25] LABS: #Eosinphils 0.3 thou/uL (0.0-0.7); #Lymphocytes 1.8 thou/uL (1.20-3.40); #Monocytes 0.7 thou/uL (0.11-0.59); #Neutrophils 4.4 thou/uL (1.40-6.50); %Basophils 0.6 % (0.0-1.0); %Lymphocytes 24.5 % (21.0-51.0); %Monocytes 9.3 % (0.0-10.0); %Neutrophils 61.6 % (42.0-75.0); Hemoglobin 10.4 g/dL (12.0-16.0); Mean Corpuscular Volume 81.6 fL (78.0-98.0); Mean Platelet Volume 8.3 fL (7.4-10.4); Platelet Count 379 thou/uL (130-400); Red Blood Cell (RBC) Count 3.86 mill/uL (4.20-5.40); White Blood Cell (WBC) Count 7.2 thou/uL (4.8-10.8)
[2019-05-17 05:47] LABS: Anion Gap 11 mmol/L (10-20); BUN (Urea Nitrogen) 8 mg/dL (7.0-18.7); Calc. Creatinine Clearance 127 mL/min (70-130); Carbon Dioxide 26 mmol/L (22-29); Chloride 105 mmol/L (98-107); Estimated GFR-MDRD 77; Glucose 93 mg/dL (70-105); Potassium 4.7 mmol/L (3.5-5.1); Sodium 137 mmol/L (136-145)
[2019-05-17] MEDS: Enoxaparin Sodium 40 MG/0.4 ML SYRINGE SC SCH (07:52)
[2019-05-17] MEDS: Polyethylene Glycol 3350 17 GM Packet PO SCH (07:52)
[2019-05-17] MEDS: metroNIDAZOLE 500 MG TAB PO SCH (07:52)
[2019-05-17] MEDS: Ciprofloxacin 500 MG TAB PO SCH (07:53)
[2019-05-17] MEDS: Senokot S 8.6-50 MG TAB PO SCH (07:53)
--- NOTE | 2019-05-17 11:25 | DIS ---
DATE OF ADMISSION: 05/13/2019 DATE OF DISCHARGE: 05/17/2019 PRIMARY CARE PROVIDER: Chace Shultz. DISPOSITION: Discharged home. FINAL DIAGNOSES: Sigmoid diverticulitis, abdominal pain, sepsis syndrome, iron deficiency anemia. DISCHARGE MEDICATIONS: 1. Cipro 500 mg p.o. b.i.d. for 7 days. 2. Flagyl 500 mg p.o. t.i.d. for 7 days. 3. Ferrous sulfate 324 mg p.o. daily. CODE STATUS: Full. PENDING AT TIME OF DISCHARGE: Nothing. DIET: As tolerated. ALLERGIES: NO KNOWN DRUG ALLERGIES. HOSPITAL COURSE: The patient admitted to the Hospitalist Service from [facility] with abdominal pain. CT reveals sigmoid diverticulitis without perforation. Laboratory revealed white count of 16.2, hemoglobin 12.2, and platelet count of 372,000. Chemistries were unrevealing except for a mild low sodium of 134. Iron was 28, TIBC 319. Cultures were unrevealing. General Surgery was consulted, Dr. Gregorio Moulton. The patient was treated with IV antibiotics, IV Cipro, IV Flagyl. As her pain etc resolved, she is transitioned to p.o. antibiotics. At this time, she is pain free, eating well, bowel movements are normal, she is doing well. She has been advised to see her PCP in followup in 1 week. Prescriptions have been written. Job ID: [id number]
[2019-05-17 12:07] VITALS: BP 123/83; TEMP 97.9
--- NOTE | 2019-05-19 07:39 | PQF ---
THIAGO BUCK MD [id number] CLINICAL DOCUMENTATION CLARIFICATION FORM: POST DISCHARGE Addendum to original discharge summary date: ____ Late entry note date: __ DATE: 05-19-2019 ATTN:Dr. Isabel, [place] Please exercise your independent, professional judgment in responding to the clarification form. Clinical indicators are provided on the bottom of this form for your review Can you please specify whether sepsis is ruled in or ruled out during this encounter? Please check appropriate box(s) to clarify if the following diagnosis has been ruled in or ruled out: Sepsis [x ] Ruled in diagnosis [ x] Continue to treat [ ] Resolved [ ] Ruled out diagnosis [ ] Cannot rule out diagnosis [ ] Other diagnosis please specify: [ ] Unable to determine For continuity of documentation, please document condition throughout progress notes and discharge summary. Thank You. CLINICAL INDICATORS: HP 10/[address] Gardner presents with worsenig abdominal pain PN 10/[address] Gardner Sepsis unspecified organism PN 10/[address] Gardner Leukocytosis DS 10/[address] Isabel Sigmoid diverticulitis, sepsis syndrome Laboratory: WBC=16.2, 10.0, 6.4, 5.1 RISK FACTOR: HP- Tubal Ligation HP- Sogmoid diverticulitis DS- Iron deficiency anemia TREATMENTS: MAR- IV fluids Mar 10- Zoyn IV MAR 104- Ciprofloxacin IV Labs- WBC monitoring (This form is maintained as a part of the permanent medical record) 2014 [employer]. All Rights Reserved [email or web address] ([employer]: [place]) [not provided] MTDD
--- NOTE | 2019-05-19 18:04 | PQF ---
THIAGO BUCK MD [id number] CLINICAL DOCUMENTATION CLARIFICATION FORM: POST DISCHARGE Addendum to original discharge summary date: ____ Late entry note date: __ DATE:05-19-2019 ATTN:Dr. Isabel, [place] Please exercise your independent, professional judgment in responding to the clarification form. Clinical indicators are provided on the bottom of this form for your review In your clinical opinion, can you please further specify Diverticulitis as : Please check appropriate box(s): [ ] Infectious diverticulitis [ ] Non infectious diverticulitis [ ] Other diagnosis please specify: [ ] Unable to determine For continuity of documentation, please document condition throughout progress notes and discharge summary. Thank You. CLINICAL INDICATOR: HP 10/ Pg1 Dr. Gardner presents with worsenig abdominal pain PN 05/[address] Gardner Sepsis unspecified organism PN 05/[address] Gardner Leukocytosis DS [address] Isabel Sigmoid diverticulitis, sepsis syndrome Laboratory: WBC=16.2, 10.0, 6.4, 5.1 RISK FACTORS: HP- Tubal Ligation HP- Sogmoid diverticulitis DS- Iron deficiency anemia TREATMENTS: MAR- IV fluids Mar 05/13- Zoyn IV MAR 10- Ciprofloxacin IV Labs- WBC monitoring (This form is maintained as a part of the permanent medical record) 2014 [employer]. All Rights Reserved [email or web address] [email or web address] [not provided] MTDD
== END 2019-05-17 12:09 | disposition home or self-care (01) | DRG 872 ==
LOC: ERS 08:21 → T4-A 10:35
PROVIDERS: ADMIT Internal Medicine; ATTEND Internal Medicine
DX: A41.9 Sepsis, unspecified organism (principal); K57.32 Diverticulitis of large intestine without perforation or abscess without bleeding; D72.829 Elevated white blood cell count, unspecified; D50.0 Iron deficiency anemia secondary to blood loss (chronic); Z98.51 Tubal ligation status
CPT/HCPCS: 36415; 74177; 80048; 80053; 81003; 81015; 82607; 82728; 82746; 83540; 83550; 83690; 85025; 96365; 96375; C9113; J0744; J1650; J2270; J2405; J2543; Q0162; Q9966

== ENCOUNTER 2019-10-30 11:26 | Inpatient (IN) | payer OTHER ==
[2019-10-30] MEDS ORDERED: Acetaminophen 500 MG TAB ONE (11:49)
[2019-10-30] MEDS ORDERED: cefTRIAXone\\ROCEPHIN 2 GM VIAL ONE (11:51)
[2019-10-30] MEDS ORDERED: Azithromycin 500 MG VIAL ONE (11:51)
[2019-10-30 12:18] LABS: #Lymphocytes 0.7 thou/uL (1.20-3.40); #Monocytes 0.2 thou/uL (0.11-0.59); #Neutrophils 4.2 thou/uL (1.40-6.50); %Basophils 0.1 % (0.0-1.0); %Monocytes 4.6 % (0.0-10.0); %Neutrophils 82.2 % (42.0-75.0); Hemoglobin 11.9 g/dL (12.0-16.0); Mean Corpuscular HGB CONC 32.9 g/dL (32.0-36.0); Mean Corpuscular Hemoglobin 25.1 pg (27.0-31.0); Mean Corpuscular Volume 76.1 fL (78.0-98.0); Mean Platelet Volume 9.1 fL (7.4-10.4); Platelet Count 285 thou/uL (130-400); RBC Distribution Width 15.2 % (11.5-14.5); Red Blood Cell (RBC) Count 4.75 mill/uL (4.20-5.40); White Blood Cell (WBC) Count 5.1 thou/uL (4.8-10.8)
--- NOTE | 2019-10-30 12:33 | RAD ---
Exam: Chest one view HISTORY:Cough. Comparison: 11/12/2016 FINDINGS: Cardiac silhouette: Normal Aorta: Unremarkable Pulmonary vessels: Normal Costophrenic angles: Trace left-sided pleural effusion. LUNGS: Patchy bibasilar opacities. Pneumothorax: None Osseous abnormalities: None IMPRESSION: 1. Patchy bibasilar opacities. Interstitial/alveolar infiltrate is suspected. 2. Continued surveillance.
[2019-10-30 12:40] LABS: ALT (SGPT) 17 U/L (8-55); AST (SGOT) 17 U/L (5-34); Alkaline Phosphatase 121 U/L (40-110); Anion Gap 13 mmol/L (10-20); BUN (Urea Nitrogen) 10 mg/dL (7.0-18.7); Bilirubin, Total 0.3 mg/dL (0.2-1.2); Calc. Creatinine Clearance 0 mL/min (70-130); Calcium 8.8 mg/dL (7.8-10.44); Carbon Dioxide 24 mmol/L (22-29); Chloride 103 mmol/L (98-107); Estimated GFR-MDRD 75; Globulin 3.1 g/dL (2.4-3.5); Glucose 89 mg/dL (70-105); Potassium 3.7 mmol/L (3.5-5.1); Protein, Total 7.1 g/dL (6.0-8.3); Sodium 136 mmol/L (136-145)
[2019-10-30 12:58] LABS: Bacteria/HPF None Seen HPF (None Seen); Bilirubin Negative (Negative); Blood, Urine Negative (Negative); Clarity Clear (Clear); Glucose, Urine (Dipstick) Normal (Negative); Leukocyte Negative Leu/uL (Negative); Nitrite Negative (Negative); Protein, Urine (Dipstick) 30 mg/dL (Neg-Trace); Squamous Epithelial 0-3 HPF (0-3); Urobilinogen Normal mg/dL (Less than 2); WBC/HPF 0-3 HPF (0-3)
--- NOTE | 2019-10-30 16:19 | PDOC.HHP ---
Hospitalist HPI - History of Present Illness Shortness of breath History of Present Illness: The patient is a 44-year-old female who is otherwise healthy presented to the hospital today with complaints of trouble breathing. The patient's symptoms started 3 days ago with gradual onset of cough which became productive of yellowish sputum in addition to fever and chills. She presented to an outpatient physician where flu test was negative. She was given corticosteroids and antibiotics which did not improve her condition so she presented to the ER today. The patient is persistently coughing and unable to complete full sentences. Imaging studies showing bilateral opacities suggesting possible viral etiology. Hospitalist ROS - Review of Systems All other systems reviewed; all pertinent +/- noted in HPI/Subj Hospitalist History - Past Medical History Heme/Onc: reports: no pertinent history Hepatobiliary: reports: no pertinent history Psych: reports: no pertinent history Musculoskeletal: reports: no pertinent history Rheumatologic: reports: no pertinent history Renal/: reports: no pertinent history Endocrine: reports: no pertinent history Dermatology: reports: no pertinent history - Past Surgical History Past Surgical History: reports: Tubal Ligation - Social History Alcohol: reports: Rare Drugs: reports: none - Exam General Appearance: awake alert ENT: normocephalic atraumatic Neck: supple, no JVD Heart: RRR Respiratory: rhonchi, tachypneic Extremities: no cyanosis, no clubbing, no edema Neurological: cranial nerve grossly intact, no focal deficits Hospitalist Results - Labs Result Diagrams: 10/30/19 12:05 10/30/19 12:05 Lab results: WBC 5.1 thou/uL (4.8-10.8) 10/30/19 12:05 Hgb 11.9 g/dL (12.0-16.0) L 10/30/19 12:05 Hct 36.1 % (36.0-47.0) 10/30/19 12:05 MCV 76.1 fL (78.0-98.0) L 10/30/19 12:05 Plt Count 285 thou/uL (130-400) 10/30/19 12:05 Neutrophils % 82.2 % (42.0-75.0) H 10/30/19 12:05 Sodium 136 mmol/L (136-145) 10/30/19 12:05 Potassium 3.7 mmol/L (3.5-5.1) 10/30/19 12:05 Chloride 103 mmol/L (98-107) 10/30/19 12:05 Carbon Dioxide 24 mmol/L (22-29) 10/30/19 12:05 BUN 10 mg/dL (7.0-18.7) 10/30/19 12:05 Creatinine 0.83 mg/dL (0.6-1.1) 10/30/19 12:05 Glucose 89 mg/dL (70-105) 10/30/19 12:05 Lactic Acid 2.0 mmol/L (0.5-2.2) 10/30/19 12:05 Calcium 8.8 mg/dL (7.8-10.44) 10/30/19 12:05 Total Bilirubin 0.3 mg/dL (0.2-1.2) 10/30/19 12:05 AST 17 U/L (5-34) 10/30/19 12:05 ALT 17 U/L (8-55) 10/30/19 12:05 Alkaline Phosphatase 121 U/L (40-110) H 10/30/19 12:05 Serum Total Protein 7.1 g/dL (6.0-8.3) 10/30/19 12:05 Albumin 4.0 g/dL (3.5-5.0) 10/30/19 12:05 Urine Ketones Negative mg/dL (Negative) 10/30/19 12:16 Urine Blood Negative (Negative) 10/30/19 12:16 Urine Nitrite Negative (Negative) 10/30/19 12:16 Ur Leukocyte Esterase Negative Bong/uL (Negative) 10/30/19 12:16 Urine RBC 4-6 HPF (0-3) A 10/30/19 12:16 Urine WBC 0-3 HPF (0-3) 10/30/19 12:16 Ur Squamous Epith Cells 0-3 HPF (0-3) 10/30/19 12:16 Urine Bacteria None Seen HPF (None Seen) 10/30/19 12:16 Hospitalist H&P A/P - Problem (1) Viral pneumonia Code(s): J12.9 - VIRAL PNEUMONIA, UNSPECIFIED Status: Acute (2) Sepsis Code(s): A41.9 - SEPSIS, UNSPECIFIED ORGANISM Status: Acute Qualifiers: Sepsis type: sepsis due to unspecified organism Sepsis acute organ dysfunction status: without acute organ dysfunction Qualified Code(s): A41.9 - Sepsis, unspecified organism - Plan Plan: The patient will be admitted to the hospital. Oxygen as needed for hypoxia. Albuterol MDI for wheezing Ceftriaxone and azithromycin course possible superimposed pneumonia caused by bacterial infection. COVID-19 Rule out. The test was obtained in the ER.
[2019-10-30 17:14] VITALS: BMI 30.7
[2019-10-30] MEDS: PROVENTIL INHALER 6.7 G (200 INHALATIONS) INH SCH ×2 (19:45→22:07)
[2019-10-30] MEDS: Benzonatate 100 MG CAP PO PRN (21:43)
[2019-10-30] MEDS: Acetaminophen 325 MG TAB PO PRN (21:43)
[2019-10-31] MEDS: PROVENTIL INHALER 6.7 G (200 INHALATIONS) INH SCH ×6 (04:10→20:55)
[2019-10-31 05:41] LABS: #Lymphocytes 1.1 thou/uL (1.20-3.40); #Monocytes 0.4 thou/uL (0.11-0.59); #Neutrophils 4.1 thou/uL (1.40-6.50); %Eosinophils 0.2 % (0.0-10.0); %Lymphocytes 19.1 % (21.0-51.0); %Monocytes 6.5 % (0.0-10.0); %Neutrophils 74.2 % (42.0-75.0); Hemoglobin 10.9 g/dL (12.0-16.0); Mean Corpuscular HGB CONC 32.7 g/dL (32.0-36.0); Mean Corpuscular Hemoglobin 24.6 pg (27.0-31.0); Mean Corpuscular Volume 75.3 fL (78.0-98.0); Mean Platelet Volume 9.4 fL (7.4-10.4); Platelet Count 264 thou/uL (130-400); RBC Distribution Width 15.1 % (11.5-14.5); Red Blood Cell (RBC) Count 4.42 mill/uL (4.20-5.40); White Blood Cell (WBC) Count 5.6 thou/uL (4.8-10.8)
[2019-10-31 06:05] LABS: BUN (Urea Nitrogen) 6 mg/dL (7.0-18.7); Calc. Creatinine Clearance 138 mL/min (70-130); Calcium 8.1 mg/dL (7.8-10.44); Carbon Dioxide 21 mmol/L (22-29); Estimated GFR-MDRD 89; Glucose 86 mg/dL (70-105)
[2019-10-31 06:14] LABS: Anion Gap 15 mmol/L (10-20); Chloride 103 mmol/L (98-107); Potassium 3.7 mmol/L (3.5-5.1); Sodium 133 mmol/L (136-145)
[2019-10-31] MEDS: Acetaminophen 325 MG TAB PO PRN ×3 (08:49→22:37)
[2019-10-31] MEDS: Benzonatate 100 MG CAP PO PRN ×3 (08:49→22:37)
[2019-10-31] MEDS: Enoxaparin Sodium 40 MG/0.4 ML SYRINGE SC SCH (09:50)
[2019-10-31] MEDS: Azithromycin 500 MG in Sodium Chloride 0.9% 250 ML 250 ML IVPB SCH (12:13)
[2019-10-31] MEDS ORDERED: Ondansetron PF 4 MG/2 ML Vial IVP PRN (12:57)
[2019-10-31] MEDS: cefTRIAXone\\ROCEPHIN 1 GM in Sodium Chloride 0.9% 100 ML IVPB SCH (13:29)
--- NOTE | 2019-10-31 16:50 | PDOC.HOSPP ---
- Subjective Encounter Date: 10/31/19 Subjective: Feels better Still complaining of cough - Objective Vital Signs & Weight: Vital Signs (12 hours) Temp Pulse Resp BP Pulse Ox 10/31/19 12:45 98.4 F 90 20 107/77 94 L 10/31/19 12:44 98.4 F 84 20 105/78 94 L 10/31/19 08:00 94 L Weight Weight 189 lb 15.91 oz Result Diagrams: 10/31/19 05:10 10/31/19 05:10 Hospitalist ROS - Medication Medications: Active Medications Generic Name Dose Route Start Last Admin Trade Name Freq PRN Reason Stop Dose Admin Acetaminophen 650 mg 10/30/19 21:33 10/31/19 08:49 Tylenol PO 650 mg Q4H PRN Administration Headache/Fever or Pain Albuterol Sulfate 1 puff 10/30/19 18:30 10/31/19 14:43 Proventil Hfa INH 1 puff [id number] JEANA Administration Benzonatate 100 mg 10/30/19 21:33 10/31/19 08:49 Tessalon PO 100 mg TIDPRN PRN Administration Cough Enoxaparin Sodium 40 mg 10/31/19 09:00 10/31/19 09:50 Lovenox SC 40 mg 0900 JEANA Administration Azithromycin 500 mg/ Sodium 250 mls @ 250 mls/hr 10/31/19 12:00 10/31/19 12: 13 Chloride IVPB 250 mls 1200 JEANA Administration Ceftriaxone Sodium 1 gm/ 100 mls @ 200 mls/hr 10/31/19 13:00 10/31/19 13:29 Sodium Chloride IVPB 100 mls 1300 JEANA Administration Ondansetron HCl 4 mg 10/31/19 12:57 10/31/19 13:30 Zofran IVP 4 mg Q6H PRN Administration Nausea/Vomiting - Exam General Appearance: awake alert Neck: supple, no JVD Respiratory: normal chest expansion, no tachypnea Gastrointestinal: soft Extremities: no cyanosis, no clubbing Neurological: cranial nerve grossly intact, no focal deficits Psychiatric: normal affect, normal behavior, A&O x 3 Hosp A/P (1) Viral pneumonia Code(s): J12.9 - VIRAL PNEUMONIA, UNSPECIFIED Status: Acute (2) Sepsis Code(s): A41.9 - SEPSIS, UNSPECIFIED ORGANISM Status: Acute Qualifiers: Sepsis type: sepsis due to unspecified organism Sepsis acute organ dysfunction status: without acute organ dysfunction Qualified Code(s): A41.9 - Sepsis, unspecified organism - Plan Continue IV ceftriaxone and azithromycin. Continue IV fluids. COVID 19 test pending.
[2019-11-01] MEDS: PROVENTIL INHALER 6.7 G (200 INHALATIONS) INH SCH ×3 (02:11→10:30)
[2019-11-01] MEDS: Acetaminophen 325 MG TAB PO PRN ×2 (05:01→10:33)
[2019-11-01] MEDS: Benzonatate 100 MG CAP PO PRN ×2 (05:01→10:33)
[2019-11-01 06:01] LABS: #Lymphocytes 0.9 thou/uL (1.20-3.40); #Monocytes 0.2 thou/uL (0.11-0.59); #Neutrophils 3.7 thou/uL (1.40-6.50); %Basophils 0.5 % (0.0-1.0); %Eosinophils 0.4 % (0.0-10.0); %Lymphocytes 18.5 % (21.0-51.0); %Monocytes 3.6 % (0.0-10.0); %Neutrophils 76.9 % (42.0-75.0); Hemoglobin 11.2 g/dL (12.0-16.0); Mean Corpuscular HGB CONC 32.7 g/dL (32.0-36.0); Mean Corpuscular Hemoglobin 25.4 pg (27.0-31.0); Mean Corpuscular Volume 77.7 fL (78.0-98.0); Mean Platelet Volume 9.6 fL (7.4-10.4); Platelet Count 241 thou/uL (130-400); RBC Distribution Width 15.2 % (11.5-14.5); Red Blood Cell (RBC) Count 4.41 mill/uL (4.20-5.40); White Blood Cell (WBC) Count 4.8 thou/uL (4.8-10.8)
[2019-11-01 06:18] VITALS: BP 131/79; TEMP 99.1
[2019-11-01 06:18] LABS: Anion Gap 14 mmol/L (10-20); BUN (Urea Nitrogen) 6 mg/dL (7.0-18.7); Calc. Creatinine Clearance 144 mL/min (70-130); Calcium 8.5 mg/dL (7.8-10.44); Carbon Dioxide 20 mmol/L (22-29); Chloride 104 mmol/L (98-107); Estimated GFR-MDRD Greater than 90; Glucose 84 mg/dL (70-105); Potassium 3.6 mmol/L (3.5-5.1); Sodium 134 mmol/L (136-145)
[2019-11-01] MEDS: Enoxaparin Sodium 40 MG/0.4 ML SYRINGE SC SCH (07:46)
[2019-11-01] MEDS: Azithromycin 500 MG in Sodium Chloride 0.9% 250 ML 250 ML IVPB SCH (11:44)
[2019-11-01] MEDS: cefTRIAXone\\ROCEPHIN 1 GM in Sodium Chloride 0.9% 100 ML IVPB SCH (13:27)
--- NOTE | 2019-11-02 11:52 | DIS ---
DATE OF ADMISSION: 10/30/2019 DATE OF DISCHARGE: 11/01/2019 DISCHARGE DIAGNOSES: 1. Acute respiratory failure with hypoxia. 2. Coronavirus, COVID-19 infection. DISCHARGE MEDICATIONS: 1. Robitussin AC 10 mL p.o. q.4-6 hours as needed for cough. 2. Azithromycin 500 mg orally daily for 5 days. HISTORY OF PRESENT ILLNESS AND HOSPITAL COURSE: The patient is a 44-year-old female with no significant past medical history, who presented to the hospital with 3 days of shortness of breath, cough, associated with fever and chills. She was admitted to the hospital, where her flu test was negative and her x-ray was unremarkable. She was started empirically on IV antibiotics and a COVID-19 test was performed and came back positive. The patient's hypoxia resolved and her cough persisted. At this time, she is stable to be discharged and quarantined at home for 14 days, after which she will need to get retested. The patient was instructed to follow with [facility] after the 14 days to arrange for a test. Job ID: [id number]
== END 2019-11-01 17:09 | disposition home or self-care (01) | DRG 871 ==
LOC: ERS 11:26 → T4-A 13:21
PROVIDERS: ADMIT Internal Medicine; ATTEND Internal Medicine
DX: A41.9 Sepsis, unspecified organism (principal); J96.01 Acute respiratory failure with hypoxia; J12.89 Other viral pneumonia; B97.29 Other coronavirus as the cause of diseases classified elsewhere; Z98.51 Tubal ligation status
CPT/HCPCS: 36415; 71045; 80048; 80053; 81003; 81015; 83605; 85025; 87040; 87081; 87430; 87804; 96365; J0456; J0696; J1650; J2405; J3490; J7050; U0001

== ENCOUNTER 2020-06-05 10:25 | Emergency (ER) | payer SELFPAY ==
[2020-06-05 11:18] LABS: Hemoglobin 11.4 g/dL (12.0-16.0); Mean Corpuscular HGB CONC 32.4 g/dL (32.0-36.0); Mean Corpuscular Hemoglobin 23.4 pg (27.0-31.0); Mean Corpuscular Volume 72.2 fL (78.0-98.0); Mean Platelet Volume 8.9 fL (7.4-10.4); Platelet Count 422 thou/uL (130-400); RBC Distribution Width 15.5 % (11.5-14.5); Red Blood Cell (RBC) Count 4.87 mill/uL (4.20-5.40)
[2020-06-05] MEDS ORDERED: Lidocaine Viscous Sol 2% 15 ml UD Cup ONE (11:21)
[2020-06-05] MEDS ORDERED: Mag-Al 1200 mg/1200 mg/30 ML UDCUP ONE (11:21)
[2020-06-05] MEDS ORDERED: Famotidine 20 MG TAB ONE (11:22)
[2020-06-05 11:40] LABS: ALT (SGPT) 15 U/L (8-55); AST (SGOT) 19 U/L (5-34); Alkaline Phosphatase 90 U/L (40-110); Anion Gap 12 mmol/L (10-20); BUN (Urea Nitrogen) 11 mg/dL (7.0-18.7); Bilirubin, Total 0.3 mg/dL (0.2-1.2); Calc. Creatinine Clearance 0 mL/min (70-130); Calcium 8.8 mg/dL (7.8-10.44); Carbon Dioxide 24 mmol/L (22-29); Chloride 105 mmol/L (98-107); Estimated GFR-MDRD 73; Globulin 3.4 g/dL (2.4-3.5); Glucose 86 mg/dL (70-105); Lipase 23 U/L (8-78); Potassium 3.6 mmol/L (3.5-5.1); Protein, Total 7.4 g/dL (6.0-8.3); Sodium 137 mmol/L (136-145)
[2020-06-05 11:43] LABS: #Basophils 0.1 thou/uL (0.0-0.2); #Eosinphils 0.3 thou/uL (0.0-0.7); #Lymphocytes 2.1 thou/uL (1.20-3.40); #Monocytes 0.7 thou/uL (0.11-0.59); #Neutrophils 5.9 thou/uL (1.40-6.50); %Basophils 1.1 % (0.0-1.0); %Lymphocytes 23.1 % (21.0-51.0); %Monocytes 7.5 % (0.0-10.0); %Neutrophils 65.3 % (42.0-75.0); Anisocytosis SLIGHT = 6-15 cells (100X) (0-5/hpf); Elliptocytes SLIGHT = 2-5 cells (100X) (0-1/hpf); MDiff Complete? YES; Microcytosis SLIGHT = 6-15 cells (100X) (0-5/hpf); Platelet Morphology Comment Appears Increased
[2020-06-05 12:13] LABS: Bilirubin Negative (Negative); Blood, Urine Negative (Negative); Clarity Clear (Clear); Glucose, Urine (Dipstick) Normal (Negative); Ketone, Urine Negative (Negative); Leukocyte Negative Leu/uL (Negative); Nitrite Negative (Negative); Protein, Urine (Dipstick) Negative (Neg-Trace); Specific Gravity, Urine 1.019 (1.002-1.036); Urobilinogen Normal mg/dL (Less than 2); pH, Urine 6.5 (5.0-9.0)
[2020-06-05 12:18] LABS: Pregnancy Test - Urine (BHCG) Negative (Negative); Pregu Control Background? CLEAR/WHITE (CLR/WHITE); Pregu Control Bar Appear? YES (CONTROL BAR); Specific Gravity 1.019 (1.002-1.036)
== END 2020-06-05 12:31 | disposition home or self-care (01) ==
LOC: ERS 10:25
DX: R10.13 Epigastric pain (principal)
CPT/HCPCS: 36415; 80053; 81003; 81025; 83690; 85025; 93005